=== PATIENT | male | born 1985 | race Caucasian/White ===

== ENCOUNTER 2016-08-12 17:02 | Emergency (ER) | payer OTHER ==
[2016-08-12 17:20] VITALS: BP 130/80
[2016-08-12] MEDS ORDERED: Morphine Sulfate 4 mg/mL 1mL Syr IVP STA (17:55)
[2016-08-12] MEDS ORDERED: Sodium Chloride 0.9% 1,000 ML IV ONE (17:55)
--- NOTE | 2016-08-12 18:00 | ED Physician Chart ---
Chief Complaint/HPI - Patient Information Date Seen:: 08/12/16 Time Seen:: 17:55 Chief Complaint:: rt wrist injury History of Present Illness:: pt w rt wrist injury after he fell while he was cooking in kitchen. he fell off a platform and onto his rt hand outstretched behind him to catch fall. has sev pain and obvious deformity to rt wrist/radius. no pain meds used. no pmh. no other injury from fall. no loc. no head impact. no guillen. no neck pain. no cp. no abd p. pt is active and was on job but no facility within 2 hrs of here as of now w traffic. Allergies:: Allergies Allergy/AdvReac Type Severity Reaction Status Date / Time No Known Allergies Allergy Verified 08/12/16 17:21 Vitals:: Vital Signs - 8 hr 08/12/16 08/12/16 17:19 17:24 Temp 97.9 F HR 64 RR 17 BP 130/80 147/65 Historian:: Patient Review of Systems - Review of Systems General/Constitutional: No fever, No chills, No weight loss, No weakness, No diaphoresis, No edema, No loss of appetite Skin: No skin lesions, No rash, No bruising Head: No headache, No light-headedness Eyes: No loss of vision, No pain, No diplopia ENT: No earache, No nasal drainage, No sore throat, No tinnitus Neck: No neck pain, No swelling, No thyromegaly, No stiffness, No mass noted Cardio Vascular: No chest pain, No palpitations, No PND, No orthopnea, No edema Pulmonary: No SOB, No cough, No sputum, No wheezing GI: No nausea, No vomiting, No diarrhea, No pain, No melena, No hematochezia, No constipation, No hematemesis G/U: No dysuria, No frequency, No hematuria Musculoskeletal: Bone or joint pain, No back pain, No muscle pain Endocrine: No polyuria, No polydipsia Psychiatric: No prior psych history, No depression, No anxiety, No suicidal ideation Hematopoietic: No bruising, No lymphadenopathy Allergic/Immuno: No urticaria, No angioedema Neurological: No syncope, No focal symptoms, No weakness, No paresthesia, No headache, No seizure, No dizziness, No confusion, No vertigo Past Medical History - Past Medical History Past Medical History: No significant medical hx Social History: No Drug Use Medication: None Family Medical History - Family Member Mother Hx Family Cancer: No Hx Family Stroke: No Hx Family Dementia: No Hx Family AIDS: No Hx Family HIV: No Hx Family COPD: No Hx Family Psychiatric Problems: No Hx Family Tuberculosis: No Physical Exam - Physical Examination General/Constitutional: Awake, Well-developed, well-nourished, Alert, No distress, GCS 15, Non-toxic appearing, Ambulatory Head: Atraumatic Eyes: Lids, conjuctiva normal, PERRL, EOMI Skin: Nl inspection, No rash, No skin lesions, No ecchymosis, Well hydrated, No lymphadenopathy ENMT: External ears, nose nl, Nasal exam nl, Lips, teeth, gums nl Neck: Nontender, Full ROM w/o pain, No JVD, No nuchal rigidity, No bruit, No mass, No stridor Respiratory: Nl effort/Exclusion, Clear to Auscultation, No Wheeze/Rhonchi/Rales Cardio Vascular: RRR, No murmur, gallop, rubs, NL S1 S2 GI: No tenderness/rebounding/guarding, No organomegaly, No hernia, Normal BS's, Nondistended, No mass/bruits, No McBurney tenderness : No CVA tenderness Extremities: No tenderness or effusion, Full ROM, normal strength in all extremities, No edema, Normal digits & nails Other Extremities comments:: obvious deformity of rt distal radius w dorsal extrusion. somewhat diminished radial pulse. ok sensation. there is a mild abrasion overlying the dorsal ulnar area..not near fx site but ; no open wound (ie no open fx) Neuro/Psych: Alert/oriented, DTR's symmetric, Normal sensory exam, Normal motor strength, Judgement/insight normal, Mood normal, Normal gait, No focal deficits Misc: normal gait, Normal back, No paraspinal tenderness Labs/Radiology/EKG Results - Radiology Results Results: rt wrist- comminuted fracture of rt distal radius with volar angulation and wrist dislocation Assessment - Procedures Procedures:: reduction of fracture dislocation of rt wrist. dilaudid 1mg iv first for pain. in line traction to improve angulation and reduce dislocation fiberglass formed splint applied. radial pulse is much improved after procedure. Informed Consent: Procedure/risk/benefits explained by MD: Yes ED Septic Shock - . Is Septic Shock (SBP<90, OR Lactate>4 mmol\L) present?: No - <6hrs of presentation: Vital Signs: Vital Signs - 8 hr 08/12/16 08/12/16 17:19 17:24 Temp 97.9 F HR 64 RR 17 BP 130/80 147/65 Reassessment (Disposition) - Reassessment Reassessment Condition:: Improved - Diagnosis Diagnosis:: comminuted fracture of rt distal radius with volar angulation and wrist dislocation - Aftercare/Follow up Instructions Aftercare/Follow-Up Instructions:: Counseled pt regarding lab results/diagnosis & need follow up Notes:: friend driving him home Medication Prescribed:: norco 15 - Patient Disposition Discharge/Transfer:: Home Condition at Disposition:: Improved
[2016-08-12] MEDS ORDERED: Morphine Sulfate 4 mg/mL 1mL Syr ONE (18:07)
[2016-08-12] MEDS ORDERED: HYDROmorphone 2 mg/mL 1mL Vial ONE (19:43)
[2016-08-12] MEDS ORDERED: HYDROmorphone 1 mg/mL 1mL Syr IVP STA (20:16)
--- NOTE | 2016-08-13 11:16 | Diagnostic Imaging Report ---
Right wrist (3 views) HISTORY: Pain, trauma The exam demonstrates a severely impacted, comminuted fracture of the distal radius. Fracture lines extend to the articular surface. In addition, there is a comminuted displaced fracture of the ulna styloid. IMPRESSION: 1. Fractures distal radius and ulna styloid
== END 2016-08-12 20:25 | disposition home or self-care (01) ==
LOC: ER 17:02
DX: S52.591A Other fractures of lower end of right radius, initial encounter for closed fracture (principal); W19.XXXA Unspecified fall, initial encounter; Y93.G3 Activity, cooking and baking; Y92.010 Kitchen of single-family (private) house as the place of occurrence of the external cause; Y99.8 Other external cause status
CPT/HCPCS: 73110-TC-RT; 96374; 96375; J1170; J2405; J7030